=== PATIENT | female | born 1975 | race Caucasian/White ===

== ENCOUNTER 2019-10-30 15:33 | Emergency (ER) | payer OTHER ==
[~2019-10-30] VITALS: Ht 175.3 cm; Wt 77.1 kg
[2019-10-30 16:25] LABS: ABSOLUTE BASOPHILS 0.1 thou/uL (0.0-0.2); ABSOLUTE EOSINOPHILS 0.1 thou/uL (0.0-0.7); ABSOLUTE LYMPHOCYTES 1.8 thou/uL (0.8-5.3); ABSOLUTE MONOCYTES 0.3 thou/uL (0.0-1.2); ABSOLUTE NEUTROPHILS 4.8 thou/uL (1.6-8.1); BASOPHILS 1.1 %; EOSINOPHILS 1.7 %; HEMATOCRIT 38.3 % (37.0-47.0); HEMOGLOBIN 13.1 gm/dL (12.0-15.0); LYMPHOCYTES 25.6 %; MCH 30.4 pg (26.0-34.0); MCHC 34.1 g/dL (28.0-37.0); MCV 89.2 fL (80.0-100.0); MONOCYTES 4.6 %; NUCLEATED RBCS 0 /100WBC; PLATELET COUNT* 215 thou/uL (150-400); RDW-CV 12.5 % (10.5-14.5); WBC 7.2 thou/uL (4.0-11.0)
[2019-10-30 16:33] LABS: CALCIUM 9.9 mg/dL (8.5-10.1); CREATININE 0.8 mg/dL (0.6-1.3)
[2019-10-30 16:44] LABS: TOTAL BILIRUBIN 0.4 mg/dL (<0.1-1.0); TOTAL PROTEIN 7.4 g/dL (6.4-8.2)
[2019-10-30] MEDS ORDERED: FLEXERIL PO (16:55)
[2019-10-30 17:13] VITALS: BP 120/74
--- NOTE | 2019-10-31 10:49 | EKG ---
[place] [address] ELECTROCARDIOGRAM REPORT Name: TARA YI Room: [facility]#: [id number] Admission: 10/30/19 Attend Phys: Discharge: 10/30/19 Date of : 75 Report #: [id number] THIS REPORT FOR: //name// [facility] ED Test Date: 2019-10-30 Test Time: 16:08:08 Pat Name: TARA YI Department: Room: Gender: F Senior Project Controls Specialist: RINKU : 1975 Requested By: Jalen Trent Order Number: [id number] MD: Paresh King Measurements Intervals [place] Rate: 64 P: 43 MO: 173 QRS: 76 QRSD: 92 T: 56 QT: 422 QTc: 436 Interpretive Statements Sinus rhythm Consider left ventricular hypertrophy Baseline wander in lead(s) I,II,aVR,aVF,V1,V2,V3,V4,V5,V6 No previous ECG available for comparison Electronically Signed On 10-31-2019 10:49:41 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
== END 2019-10-30 17:14 | disposition home or self-care (01) ==
LOC: M.ERS 15:33
PROVIDERS: Emergency Medicine Emergency Medical Services
DX: S20.211A Contusion of right front wall of thorax, initial encounter (principal); V89.2XXA Person injured in unspecified motor-vehicle accident, traffic, initial encounter; Y93.89 Activity, other specified; Y92.89 Other specified places as the place of occurrence of the external cause; Y99.8 Other external cause status